=== PATIENT | female | born 1985 | race Caucasian/White ===

== ENCOUNTER 2016-12-24 12:20 | Emergency (ER) | payer OTHER ==
--- NOTE | 2016-12-24 13:00 | EDPHY ---
H & P Stated Complaint: swollen arm w/ PICC line. Active benadryl infusion. Time Seen by Provider: 12/24/16 12:59 HPI/ROS: CHIEF COMPLAINT: Right arm swelling HISTORY OF PRESENT ILLNESS: The patient presents to the ED for evaluation of right arm swelling. The patient developed symptoms over the past day. She reports swelling mild pain in her forearm. The patient currently has a PICC line for a continuous Benadryl infusion to treat a underlying mass cell disorder. The patient denies pleuritic chest pain. She denies significant dyspnea. The patient denies prior history of DVT. 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 The patient denies any additional acute complaints. REVIEW OF SYSTEMS: A comprehensive 10 point review of systems is otherwise negative aside from elements mentioned in the history of present illness. Source: Patient - Personal History LMP (Females 10-55): 15-21 Days Ago - Medical/Surgical History Other PMH: Mast cell activation syndrome, Manav Denlos syndrome - Social History Smoking Status: Never smoked - Physical Exam Exam: General Appearance: Alert, no distress Eyes: Pupils equal and round no pallor or injection ENT, Mouth: Mucous membranes moist Respiratory: There are no retractions, lungs are clear to auscultation Cardiovascular: Regular rate and rhythm Gastrointestinal: Abdomen is soft and nontender, no masses, bowel sounds normal Neurological: A&O, normal motor function, normal sensory exam, normal cranial nerves Skin: Warm and dry, no rashes Musculoskeletal: Neck is supple nontender Extremities: Right upper extremity does have asymmetric swelling with tenderness. 2+ radial and ulnar pulses noted. Constitutional: Initial Vital Signs Temperature (C) 36.4 C 12/24/16 12:38 Heart Rate 116 H 12/24/16 12:38 Respiratory Rate 18 12/24/16 12:38 Blood Pressure 108/76 12/24/16 12:38 O2 Sat (%) 96 12/24/16 12:38 O2 Delivery Mode Room Air Allergies/Adverse Reactions: "everything" Allergy (Uncoded 12/24/16 12:47) Home Medications: Medication Instructions Recorded Diphenhydramine 25 mg/50 ml-Ns 12/24/16 Famotidine 12/24/16 Rivaroxaban [Xarelto 15mg (*)] 15 mg PO BID #42 tab 12/24/16 Synthroid 12/24/16 Xanax 12/24/16 Medical Decision Making - Diagnostics Imaging Results: Imaging Impressions Extremity Venous Study 12/24/16 13:00 Impression: 1. Thrombus is seen associated with the PICC line from the entrance site into the right brachial vein that continues into the right axillary vein with partial thrombus in the right subclavian vein. Findings discussed with Benedicto Sahni at 14:42 hour, 12/24/2016. ED Course/Re-evaluation: The patient presents to the ED for evaluation of right upper extremity swelling and pain. The patient does have a PICC line in the extremity. Ultrasound does confirm the presence of a clot extending into the axillary vein. I paged the patient's primary provider at three p.m.. I spoke with the on-call physician for the patient's primary care provider at 4: 00 p.m.. The patient needs to continue to get her Benadryl infusion. Her PICC line is currently working. The patient will be discharged home with a prescription for Xarelto. The PICC line will be left in place. The patient will contact her regular physician tomorrow to schedule follow-up. The patient has no symptoms suggestive of a PE. She has been instructed to return to the ED should she develop significant dyspnea. The patient was given her 1st dose of Xarelto in the emergency department. She will be discharged home with a 21 day prescription. Transition to once daily Xarelto will be deferred to her regular primary care provider Differential Diagnosis: Differential diagnosis considered includes upper extremity DVT, pulmonary embolism, cellulitis, abscess Departure - Departure Disposition: Home, Routine, Self-Care Clinical Impression: Arm DVT (deep venous thromboembolism), acute Condition: Good Instructions: Deep Venous Thrombosis (ED) Additional Instructions: 1. Begin Xarelto as directed. You will be on this medication twice daily for the next 21 days and then begin a once daily medication. 2. Please contact Dr. Cannon tomorrow to schedule a follow-up visit. Prescriptions: Rivaroxaban [Xarelto 15mg (*)] 15 mg PO BID #42 tab
[2016-12-24] MEDS ORDERED: RIVAROXABAN 15 MG TAB PO ONE (16:06)
[2016-12-24 16:33] VITALS: RESP 16
[2016-12-24 16:34] VITALS: BP 110/77; PULSE 110; TEMP 98.4; O2SAT 97
== END 2016-12-24 16:34 | disposition home or self-care (01) ==
DX: I82.621 Acute embolism and thrombosis of deep veins of right upper extremity (principal); Z79.01 Long term (current) use of anticoagulants

== ENCOUNTER 2017-04-21 11:17 | Emergency (ER) | payer OTHER ==
--- NOTE | 2017-04-21 12:33 | EDPHY ---
H & P Stated Complaint: SOB for 2 days . c/o orthostatic VS .left sided CP . Gardner iv 3 months Time Seen by Provider: 04/21/17 11:58 HPI/ROS: CHIEF COMPLAINT: Clogged gardner catheter HISTORY OF PRESENT ILLNESS: Patient is a 31-year-old female with a history mast cell activation syndrome, Manav-Danlos syndrome who receives continuous IV Benadryl infusions. She has a hip man catheter for her infusions she also receives IV fluids daily through the 2nd port. Today it was found that her 2nd port is clogged. She takes Xarelto as well for history of DVT in her upper extremity secondary to PICC line. She denies chest pain or shortness of breath. No fevers. She was sent here by her doctor show field to have cath flow placed into her catheter. REVIEW OF SYSTEMS: Constitutional: denies: chills, fever, recent illness, recent injury EENTM: denies: blurred vision, double vision, nose congestion Respiratory: denies: cough, shortness of breath Cardiac: denies: chest pain, irregular heart rate, lightheadedness, palpitations Gastrointestinal/Abdominal: denies: abdominal pain, diarrhea, nausea, vomiting, blood streaked stools Genitourinary: denies: dysuria, frequency, hematuria, pain Musculoskeletal: denies: joint pain, muscle pain Skin: denies: lesions, rash, jaundice, bruising Neurological: denies: headache, numbness, paresthesia, tingling, dizziness, weakness Hematologic/Lymphatic: denies: blood clots, easy bleeding, easy bruising Immunologic/allergic: denies: HIV/AIDS, transplant EXAM: GENERAL: Thin, anxious HEAD: Atraumatic, normocephalic. EYES: Pupils equal round and reactive to light, extraocular movements intact, sclera anicteric, conjunctiva are normal. ENT: TMs normal, nares patent, oropharynx clear without exudates. Moist mucous membranes. NECK: Normal range of motion, supple without lymphadenopathy or JVD. LUNGS: Breath sounds clear to auscultation bilaterally and equal. No wheezes rales or rhonchi. HEART: Regular rate and rhythm without murmurs, rubs or gallops. ABDOMEN: Soft, nontender, normoactive bowel sounds. No guarding, no rebound. No masses appreciated. BACK: No CVA tenderness, no spinal tenderness, step-offs or deformities EXTREMITIES: Normal range of motion, no pitting or edema. No clubbing or cyanosis. NEUROLOGICAL: Cranial nerves II through XII grossly intact. Normal speech, normal gait. 5/5 strength, normal movement in all extremities, normal sensation PSYCH: Normal mood, normal affect. SKIN: Warm, dry, normal turgor, no visible rashes or lesions. Source: Patient Exam Limitations: No limitations - Personal History LMP (Females 10-55): Over 28 Days Ago Current Tetanus/Diphtheria Vaccine: Unsure Current Tetanus Diphtheria and Acellular Pertussis (TDAP): Unsure - Medical/Surgical History Hx Asthma: No Hx Chronic Respiratory Disease: No Hx Diabetes: No Hx Cardiac Disease: No Hx Renal Disease: No Hx Cirrhosis: No Hx Alcoholism: No Hx HIV/AIDS: No Hx Splenectomy or Spleen Trauma: No Other PMH: Mast cell activation syndrome, Manav Denlos syndrome, DVT - Family History Significant Family History: No pertinent family hx - Social History Smoking Status: Never smoked Alcohol Use: None Drug Use: None Constitutional: Initial Vital Signs Temperature (C) 36.6 C 04/21/17 11:20 Heart Rate 114 H 04/21/17 11:20 Respiratory Rate 22 H 04/21/17 11:20 Blood Pressure 102/61 04/21/17 11:20 O2 Sat (%) 97 04/21/17 11:20 O2 Delivery Mode Room Air Allergies/Adverse Reactions: "everything" Allergy (Uncoded 04/21/17 11:24) Home Medications: Medication Instructions Recorded Diphenhydramine 25 mg/50 ml-Ns 12/24/16 Famotidine 12/24/16 Rivaroxaban [Xarelto 15mg (*)] 15 mg PO BID #42 tab 12/24/16 Synthroid 12/24/16 Xanax 12/24/16 Medical Decision Making - Diagnostics Imaging: Discussed imaging studies w/ md urologist Radiologist ED Course/Re-evaluation: Patient has stable vital signs. She is saturating 100% on room air. She was slightly tachycardic at triage but in the room is not. We discussed the recommendations of her primary doctor. We plan to treat with cath flow but she is very anxious because she has had multiple allergic reactions to medications in the past. She initially was willing to proceed if we pretreated her with Solu-Medrol. This was approved by her doctor. We also discussed possibly pre treating her with Benadryl but she is very concerned that we give it slowly and not chilled. Eventually because both of her children and her were in the room with her she became anxious and stressed and decided that she does not want to do it today but do it as an outpatient. I feel that this is reasonable because she does still have 1 port of her catheter that works. The other 1 is only used for fluid boluses. We will contact Dr. Cannon. 1:10 p.m. I discussed the case with Dr. Cannon. She recommends ultrasound to evaluate for IJ or brachial clot because of the patient's pain in that region yesterday. Also to pre treat with Solu-Medrol and Benadryl as previously discussed and then give cath flow. She states that this could happen at home with her home health nurse on Sunday but then the patient would be without IV fluids for 2 days. I spoke with the patient and who are now agreeable with this plan. The Benadryl needs to be the KARY brand. 2:45 p.m. the patient's catheter is working again after cath flow. Ultrasound of her upper extremities bilaterally is negative including IJ. The patient has tolerated the procedure without any adverse reactions. I will discharge her at this time. Differential Diagnosis: Partial list of the Differential diagnosis considered include but were not limited to; catheter malfunction, clot, anxiety and although unlikely based on the history and physical exam, I also considered DVT, PE, infection. I discussed these differential diagnoses and the plan with the [patient] as well as the usual and expected course. The [patient understands] that the diagnosis is provisional and that in medicine we are not always correct and that further workup is often warranted. Usual and customary warnings were given. All of the [patient's] questions were answered. The [patient was] instructed to return to the emergency department should the symptoms at all worsen or return, otherwise to followup with the physician as we discussed. - Data Points Medications Given: Discontinued Medications Alteplase, Recombinant (Cathflo Activase) 2 mg IVP EDNOW ONE Stop: 04/21/17 13:14 Last Admin: 04/21/17 13:50 Dose: 2 mg Diphenhydramine HCl (Benadryl Injection) 50 mg IVP EDNOW ONE Stop: 04/21/17 13:14 Last Admin: 04/21/17 13:50 Dose: 50 mg Methylprednisolone Sodium Succinate (Solu-Medrol) 125 mg IVP EDNOW ONE Stop: 04/21/17 13:14 Last Admin: 04/21/17 13:50 Dose: 125 mg Departure - Departure Disposition: Home, Routine, Self-Care Clinical Impression: Malfunction of peripheral inserted central catheter Qualifiers: Encounter type: initial encounter Qualified Code(s): T82.598A - Other mechanical complication of other cardiac and vascular devices and implants, initial encounter Condition: Fair Instructions: Tunneled Central Lines in Adult (ED) Referrals: Vilma Cannon [Other] - As per Instructions
[2017-04-21] MEDS ORDERED: methylPREDNISolone SOD SUCC 125 MG/2 ML VIAL IVP ONE (13:13)
[2017-04-21] MEDS ORDERED: ALTEPLASE 2 MG VIAL IVP ONE (13:13)
[2017-04-21 14:33] VITALS: RESP 14
[2017-04-21 15:29] VITALS: BP 117/73; PULSE 98; O2SAT 100
[2017-04-21 15:40] VITALS: TEMP 97.7
== END 2017-04-21 15:39 | disposition home or self-care (01) ==
DX: T82.598A Other mechanical complication of other cardiac and vascular devices and implants, initial encounter (principal); Y82.8 Other medical devices associated with adverse incidents
CPT/HCPCS: 96374; J0171; J1200; J2930; J2997

== ENCOUNTER 2017-09-25 12:55 | Emergency (ER) | payer MEDICAID, OTHER ==
[2017-09-25] MEDS ORDERED: NS 1,600 ML IV ONE (13:45)
--- NOTE | 2017-09-25 13:50 | EDPHY ---
H & P Stated Complaint: fever - has mast disease Time Seen by Provider: 09/25/17 13:33 HPI/ROS: CHIEF COMPLAINT: Fever HISTORY OF PRESENT ILLNESS: Patient is a 31-year-old female who comes to the emergency department complaining of a fever in the setting of a PICC line. She has a PICC line for frequent infusions of fluids and Benadryl because of her mast cell activation syndrome. 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 Also Manav-Danlos and POTS. Her home health nurse today noticed that her temperature was 99 degrees. The patient and state that she typically runs low. She has some irritation around the PICC line but no infectious signs. Her states that she tends to pick at it in her sleep. He is her primary coding support specialist. Her states that he has taken her temperature about 10 times with a temporal thermometer and her temperature was between 102 and 104. He states that 20 min later it was 99 degrees here at triage. They are concerned about line infection. She does feel generally weak and states that she feels flushed. She states that her bead flipper left the practice but that her care has been handed over to Dr. Elio Hernandez at [facility] . The patient had her PICC line changed 2 weeks ago from the left side of her chest to the right side of her chest. No urinary symptoms. No vaginal bleeding. No GI symptoms. REVIEW OF SYSTEMS: Constitutional: See HPI EENTM: denies: blurred vision, double vision, nose congestion Respiratory: denies: cough, shortness of breath Cardiac: denies: chest pain, irregular heart rate, lightheadedness, palpitations Gastrointestinal/Abdominal: denies: abdominal pain, diarrhea, nausea, vomiting, blood streaked stools Genitourinary: denies: dysuria, frequency, hematuria, pain Musculoskeletal: denies: joint pain, muscle pain Skin: denies: lesions, rash, jaundice, bruising Neurological: denies: headache, numbness, paresthesia, tingling, dizziness, weakness Hematologic/Lymphatic: denies: blood clots, easy bleeding, easy bruising Immunologic/allergic: denies: HIV/AIDS, transplant EXAM: GENERAL: Alert, malnourished, talkative in no acute distress. HEAD: Atraumatic, normocephalic. EYES: Pupils equal round and reactive to light, extraocular movements intact, sclera anicteric, conjunctiva are normal. ENT: TMs normal, nares patent, oropharynx clear without exudates. Moist mucous membranes. NECK: Normal range of motion, supple without lymphadenopathy or JVD. LUNGS: Breath sounds clear to auscultation bilaterally and equal. No wheezes rales or rhonchi. HEART: Regular rate and rhythm without murmurs, rubs or gallops. ABDOMEN: Soft, nontender, normoactive bowel sounds. No guarding, no rebound. No masses appreciated. BACK: No CVA tenderness, no spinal tenderness, step-offs or deformities EXTREMITIES: Normal range of motion, no pitting or edema. No clubbing or cyanosis. NEUROLOGICAL: Cranial nerves II through XII grossly intact. Normal speech, normal gait. 5/5 strength, normal movement in all extremities, normal sensation PSYCH: Normal mood, normal affect. SKIN: Mild irritation that appears to be from the take it arm around the PICC insertion in her right chest but no sign of infection. No purulence or significant erythema. Source: Patient, Family, Old records Exam Limitations: No limitations - Personal History LMP (Females 10-55): 15-21 Days Ago Current Tetanus/Diphtheria Vaccine: No Current Tetanus Diphtheria and Acellular Pertussis (TDAP): No - Medical/Surgical History Hx Asthma: No Hx Chronic Respiratory Disease: No Hx Diabetes: No Hx Cardiac Disease: No Hx Renal Disease: No Hx Cirrhosis: No Hx Alcoholism: No Hx HIV/AIDS: No Hx Splenectomy or Spleen Trauma: No Other PMH: Mast cell activation syndrome, Manav Denlos syndrome, DVT - Social History Smoking Status: Never smoked Constitutional: Initial Vital Signs Temperature (C) 37.7 C 09/25/17 13:02 Heart Rate 85 09/25/17 13:02 Respiratory Rate 18 09/25/17 13:02 Blood Pressure 92/58 L 09/25/17 13:02 O2 Sat (%) 96 09/25/17 13:02 O2 Delivery Mode Room Air Allergies/Adverse Reactions: "everything" Allergy (Uncoded 04/21/17 11:24) Home Medications: Medication Instructions Recorded Diphenhydramine 25 mg/50 ml-Ns 12/24/16 Famotidine 12/24/16 Rivaroxaban [Xarelto 15mg (*)] 15 mg PO BID #42 tab 07/16/17 Synthroid 12/24/16 Xanax 12/24/16 Medical Decision Making ED Course/Re-evaluation: The patient's has brought IV fluids and IV Benadryl medications from home because she is allergic to additives of multiple medications. 3:20 p.m. the patient is feeling well and remains afebrile. Her lactate is negative. I do not think that she is septic. Her white count is slightly elevated. She has chronic inflammation. They think that this is her baseline. I will page her bead flipper to discuss. She also has anemia which they were unaware of but is not surprising considering her diet which is basically cashew milk. They have tried iron supplementations without success because of her allergies. She is working with her bead flipper about this as well. They are asking for a copy of the lab work. They are eager to go home and did not want to stay in the hospital for concern of infection risk. They also asked about something besides Tegaderm to cover of her PICC line. This is a problem because she itches at the take her down at night. We will discuss with nursing staff and Oncology nursing staff. Differential Diagnosis: Partial list of the Differential diagnosis considered include but were not limited to; fever, sepsis, upper respiratory tract infection, influenza and although unlikely based on the history and physical exam, I also considered meningitis, pneumonia, urinary tract infection. I discussed these differential diagnoses and the plan with the patient as well as the usual and expected course. The patient understands that the diagnosis is provisional and that in medicine we are not always correct and that further workup is often warranted. Usual and customary warnings were given. All of the patient's questions were answered. The patient was instructed to return to the emergency department should the symptoms at all worsen or return, otherwise to followup with the physician as we discussed. - Data Points Laboratory Results: Laboratory Results 09/25/17 14:00 09/25/17 14:00 09/25/17 09/25/17 09/25/17 14:00 14:00 14:00 WBC 13.27 10^3/uL H 10^3/uL (3.80-9.50) RBC 4.24 10^6/uL 10^6/uL (4.18-5.33) Hgb 9.9 g/dL L g/dL (12.6-16.3) Hct 31.4 % L % (38.0-47.0) MCV 74.1 fL L fL (81.5-99.8) MCH 23.3 pg L pg (27.9-34.1) MCHC 31.5 g/dL L g/dL (32.4-36.7) RDW 16.4 % H % (11.5-15.2) Plt Count 286 10^3/uL 10^3/uL (150-400) MPV 9.2 fL fL (8.7-11.7) Neut % (Auto) 92.0 % H % (39.3-74.2) Lymph % (Auto) 2.0 % L % (15.0-45.0) [place] % (Auto) 4.6 % % (4.5-13.0) Eos % (Auto) 0.3 % L % (0.6-7.6) Baso % (Auto) 0.5 % % (0.3-1.7) Nucleat RBC Rel Count 0.0 % % (0.0-0.2) Absolute Neuts (auto) 12.21 10^3/uL H 10^3/uL (1.70-6.50) Absolute Lymphs (auto) 0.27 10^3/uL L 10^3/uL (1.00-3.00) Absolute Monos (auto) 0.61 10^3/uL 10^3/uL (0.30-0.80) Absolute Eos (auto) 0.04 10^3/uL 10^3/uL (0.03-0.40) Absolute Basos (auto) 0.06 10^3/uL 10^3/uL (0.02-0.10) Absolute Nucleated RBC 0.00 10^3/uL 10^3/uL (0-0.01) Immature Gran % 0.6 % % (0.0-1.1) Immature Gran # 0.08 10^3/uL 10^3/uL (0.00-0.10) PT 16.3 SEC H SEC (12.0-15.0) INR 1.29 H (0.83-1.16) APTT 31.4 SEC SEC (23.0-38.0) VBG Lactic Acid Sodium 137 mEq/L mEq/L (135-145) Potassium 3.4 mEq/L L mEq/L (3.5-5.2) Chloride 103 mEq/L mEq/L (97-110) Carbon Dioxide 24 mEq/l mEq/l (22-31) Anion Gap 10 mEq/L mEq/L (8-16) BUN 6 mg/dL L mg/dL (7-23) Creatinine 0.5 mg/dL L mg/dL (0.6-1.0) Estimated GFR > 60 Glucose 89 mg/dL mg/dL (70-100) Calcium 8.9 mg/dL mg/dL (8.5-10.4) Total Bilirubin 0.5 mg/dL mg/dL (0.1-1.4) 09/25/17 14:00 WBC RBC Hgb Hct MCV MCH MCHC RDW Plt Count MPV Neut % (Auto) Lymph % (Auto) [place] % (Auto) Eos % (Auto) Baso % (Auto) Nucleat RBC Rel Count Absolute Neuts (auto) Absolute Lymphs (auto) Absolute Monos (auto) Absolute Eos (auto) Absolute Basos (auto) Absolute Nucleated RBC Immature Gran % Immature Gran # PT INR APTT VBG Lactic Acid 0.7 mmol/L mmol/L (0.7-2.1) Sodium Potassium Chloride Carbon Dioxide Anion Gap BUN Creatinine Estimated GFR Glucose Calcium Total Bilirubin Medications Given: Discontinued Medications Sodium Chloride (Ns) 1,600 mls @ 3,200 mls/hr 30 ml/kg infuse over 30 min ( 1600 ml) IV EDNOW ONE PRN Reason: Protocol Stop: 09/25/17 14:14 Last Admin: 09/25/17 14:18 Dose: 1,600 mls Departure - Departure Disposition: Home, Routine, Self-Care Clinical Impression: Fever Qualifiers: Fever type: unspecified Qualified Code(s): R50.9 - Fever, unspecified Condition: Fair Instructions: Fever in Adults (ED) Referrals: Neida Leong MD [Primary Care Provider] - As per Instructions
[2017-09-25 14:21] LABS: PLATELET COUNT 286 10^3/uL (150-400)
[2017-09-25 14:26] LABS: INR 1.29 (0.83-1.16); PROTIME(PATIENT) 16.3 SEC (12.0-15.0)
[2017-09-25 16:33] VITALS: BP 119/79
== END 2017-09-25 16:34 | disposition home or self-care (01) ==
DX: R50.9 Fever, unspecified (principal); E86.9 Volume depletion, unspecified

== ENCOUNTER 2017-09-26 18:59 | Inpatient (IN) | payer MEDICAID ==
--- NOTE | 2017-09-26 19:23 | EDPHY ---
H & P Stated Complaint: Continued fevers, positive blood cultures. Time Seen by Provider: 09/26/17 19:16 HPI/ROS: CHIEF COMPLAINT: Bacteremia HISTORY OF PRESENT ILLNESS: The patient presents to the ED after she was noted to have positive blood cultures. The patient did have a new Galan catheter placed several weeks ago. She does have a history of an upper extremity DVT from prior PICC line which she is currently on anticoagulants for. The patient is concerned about the possibility of antibiotics activating her mast cell disorder. She is unaware of specific antibiotics which have caused anaphylaxis in the past. She has this for chronic underlying mast cell disorder. The patient's blood cultures have preliminarily identified MSSA. The patient does report symptoms of an ongoing fever today. REVIEW OF SYSTEMS: A comprehensive 10 point review of systems is otherwise negative aside from elements mentioned in the history of present illness. Source: Patient Exam Limitations: No limitations - Medical/Surgical History Hx Asthma: No Hx Chronic Respiratory Disease: No Hx Diabetes: No Hx Cardiac Disease: No Hx Renal Disease: No Hx Cirrhosis: No Hx Alcoholism: No Hx HIV/AIDS: No Hx Splenectomy or Spleen Trauma: No Other PMH: Mast cell activation syndrome, Manav Danlos syndrome, DVT - Family History Significant Family History: No pertinent family hx - Social History Smoking Status: Never smoked - Physical Exam Exam: General Appearance: Alert, no distress Eyes: Pupils equal and round no pallor or injection ENT, Mouth: Mucous membranes moist Thorax: Galan catheter noted to the right anterior chest wall. Minimal surrounding erythema. Respiratory: There are no retractions, lungs are clear to auscultation Cardiovascular: Tachycardic Gastrointestinal: Abdomen is soft and nontender, no masses, bowel sounds normal Neurological: A&O, normal motor function, normal sensory exam, normal cranial nerves Skin: Warm and dry, no rashes Musculoskeletal: Neck is supple nontender Extremities: symmetrical, full range of motion Psychiatric: Patient is oriented X 3, there is no agitation Constitutional: Initial Vital Signs Temperature (C) 36.6 C 09/26/17 19:01 Heart Rate 117 H 09/26/17 19:01 Respiratory Rate 16 09/26/17 19:01 Blood Pressure 135/97 H 09/26/17 19:01 O2 Sat (%) 93 09/26/17 19:01 O2 Delivery Mode Room Air Allergies/Adverse Reactions: "everything" Allergy (Uncoded 11/11/17 11:24) Home Medications: Medication Instructions Recorded Diphenhydramine 25 mg/50 ml-Ns 12/24/16 Famotidine 12/24/16 Rivaroxaban [Xarelto 15mg (*)] 15 mg PO BID #42 tab 12/24/16 Synthroid 12/24/16 Xanax 12/24/16 Medical Decision Making ED Course/Re-evaluation: I reviewed the patient's workup from last night and her blood culture results. The patient is noted to have MSSA bacteremia. I spoke with the covering physician surgeon assistant for the patient's immunology Clinic in [place]. They report they have no documented allergies to antibiotics only Pradaxa, tramadol, Vicodin and Xarelto. They do recommend pre treating with Solu-Medrol. The patient will be given [address]f IV[address]. Kelly at the [facility] would like to avoid pulling the PICC line if possible. He is available in the [facility] tomorrow at . Consultation is made with Dr. Gilbert camargo from the hospitalist service. The patient does not have an elevated lactic acid. She does not have septic physiology. Differential Diagnosis: Differential diagnosis considered includes bacteremia, cellulitis, sepsis - Data Points Laboratory Results: Laboratory Results 09/26/17 20:17 09/26/17 20:17 09/26/17 09/26/17 09/26/17 20:17 20:17 20:17 WBC 7.70 10^3/uL 10^3/uL (3.80-9.50) RBC 4.16 10^6/uL L 10^6/uL (4.18-5.33) Hgb 9.6 g/dL L g/dL (12.6-16.3) Hct 31.5 % L % (38.0-47.0) MCV 75.7 fL L fL (81.5-99.8) MCH 23.1 pg L pg (27.9-34.1) MCHC 30.5 g/dL L g/dL (32.4-36.7) RDW 16.5 % H % (11.5-15.2) Plt Count 212 10^3/uL D 10^3/uL (150-400) MPV 9.2 fL fL (8.7-11.7) Neut % (Auto) 90.7 % H % (39.3-74.2) Lymph % (Auto) 6.1 % L % (15.0-45.0) [place] % (Auto) 2.2 % L % (4.5-13.0) Eos % (Auto) 0.0 % L % (0.6-7.6) Baso % (Auto) 0.6 % % (0.3-1.7) Nucleat RBC Rel Count 0.0 % % (0.0-0.2) Absolute Neuts (auto) 6.98 10^3/uL H 10^3/uL (1.70-6.50) Absolute Lymphs (auto) 0.47 10^3/uL L 10^3/uL (1.00-3.00) Absolute Monos (auto) 0.17 10^3/uL L 10^3/uL (0.30-0.80) Absolute Eos (auto) 0.00 10^3/uL L 10^3/uL (0.03-0.40) Absolute Basos (auto) 0.05 10^3/uL 10^3/uL (0.02-0.10) Absolute Nucleated RBC 0.00 10^3/uL 10^3/uL (0-0.01) Immature Gran % 0.4 % % (0.0-1.1) Immature Gran # 0.03 10^3/uL 10^3/uL (0.00-0.10) VBG Lactic Acid 0.8 mmol/L mmol/L (0.7-2.1) Sodium 135 mEq/L mEq/L (135-145) Potassium 3.5 mEq/L mEq/L (3.5-5.2) Chloride 103 mEq/L mEq/L (97-110) Carbon Dioxide 23 mEq/l mEq/l (22-31) Anion Gap 9 mEq/L mEq/L (8-16) BUN 4 mg/dL L mg/dL (7-23) Creatinine 0.6 mg/dL mg/dL (0.6-1.0) Estimated GFR > 60 Glucose 75 mg/dL mg/dL (70-100) Calcium 8.4 mg/dL L mg/dL (8.5-10.4) Medications Given: Discontinued Medications Cefazolin Sodium/Dextrose (Ancef 1 Gm (Premix)) 50 mls @ 200 mls/hr IV EDNOW ONE PRN Reason: Protocol Stop: 09/26/17 20:28 Last Admin: 09/26/17 20:19 Dose: 50 mls Departure - Departure Disposition: [facility] Inpatient Acute Clinical Impression: Bacteremia, Mast cell disease Condition: Fair Referrals: Neida Leong MD [Primary Care Provider] - As per Instructions
[2017-09-26] MEDS ORDERED: CEFAZOLIN 1 GM/DEXTROSE/50 ML BAG IV ONE (20:16)
[2017-09-26] MEDS ORDERED: methylPREDNISolone SOD SUCC 125 MG/2 ML VIAL ONE (20:16)
[2017-09-26 20:37] LABS: PLATELET COUNT 212 10^3/uL (150-400)
[2017-09-26] MEDS ORDERED: methylPREDNISolone SOD SUCC 125 MG/2 ML VIAL IVP ONE (20:52)
[2017-09-27] MEDS ORDERED: ALPRAZOLAM PO PRN (00:34)
--- NOTE | 2017-09-27 01:08 | GHP ---
[f rep st] HISTORY AND PHYSICAL DATE OF ADMISSION: 09/26/2017 SOURCE: Patient is only able or willing to give a few one-word answers at this time. She does roll over and away from examiner during exam, despite giving verbal consent to complete a physical. Her has gone home to retrieve patient's home medications. Case discussed with accepting hospitalist and EMR was reviewed. CHIEF COMPLAINT: Bacteremia. 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 The patient had presented with her yesterday to the emergency department with concerns for elevated temperature of 99, as patient typically runs a little low. Blood cultures were obtained. The patient did have a little bit of leukocytosis. The patient did not want to be admitted for observation. She did receive a normal saline bolus before she was discharged back home. Blood cultures were positive today for MSSA and patient returned today for appropriate treatment. The patient with multiple medication and additive allergies related to her MCAS. At this time, patient is denying any fevers. She denies any acute pain. Per a review of EMR, patient did appear to be scratching at her CVC site right Galan catheter recently placed, and there may have been some surrounding erythema. No noted overt cellulitis. REVIEW OF SYSTEMS: Unable to obtain at this time secondary to patient cooperation. ALLERGIES: "Everything." HOME MEDICATIONS: As per EMR, levothyroxine 50 mcg p.o. Sunday, Sunday, Sunday, , Sunday, and then 100 mcg on Sunday, Sunday; Eliquis 5 mg p.o. b.i.d., Xanax 1-2 mg p.o. q.2 hours p.r.n., Benadryl 25-50 mg p.o. q.1-2 hours p.r.n. PAST MEDICAL HISTORY: Significant for mast cell activation syndrome, Manav- Danlos, DVT on anticoagulation, POsitional tachycardia syndrome. PAST SURGICAL HISTORY: PICC line, multiple CVC lines. FAMILY HISTORY: Unable to obtain secondary to patient cooperation. SOCIAL HISTORY: Patient is , lives with her and children. No listed tobacco, drug, or alcohol use. CODE STATUS: The patient is not interactive enough to further discuss, but will plan to leave her as a full code at this time and clarify in the morning. PHYSICAL EXAMINATION: VITAL SIGNS: Upon arrival to the emergency department today, blood pressure 135/95, heart rate 117, O2 saturation 93% on room air with a respiratory rate 16, temperature 36.6. Current vitals: Blood pressure 126/77, heart rate is 92, respiratory rate 16, O2 saturation 95% on room air with temperature 37.4. The patient did have a fever of 38.7. GENERAL: No acute distress. Patient is thin, frail, chronically ill-appearing female, who is resting quietly, asleep in the bed. HEAD: Normocephalic, atraumatic. EYES : Limited exam secondary to patient's going back to sleep during interview. No scleral icterus appreciated or conjunctival injection. SKIN: Pallor. Patient PICC line with old dressing in place. Limited exam secondary to patient rolling over to sleep. CV: Regular rate and rhythm. No murmurs, rubs , or gallops appreciated. RESPIRATORY: Unlabored breathing. LUNGS: Clear to auscultation bilaterally. No wheezes, rales, or rhonchi. ABDOMEN: Soft. Unable to auscultate secondary to patient rolling over, away from examiner. EXTREMITIES: Patient with 1+ pedal pulses. No lower extremity edema. MUSCULOSKELETAL: Patient with generalized weakness, but she is able to move all her extremities while lying in bed. NEURO: Limited exam secondary to patient's cooperation. PSYCH: Affect is quite flat. LABORATORY STUDIES: WBC on 09/22/2017, 13.27, H and H was 9.9 and 31.4, MCV was 94.1, platelet count was 286. No bands today. CBC is 7.70, H and H is 9.6 and 31.5, MCV 75.7, platelet count is 212, neutrophil percent 90.7, no bands. Lactic acid is negative today and yesterday. BMP reviewed. Sodium 135, potassium 3.5, chloride is 103, CO2 is 23, anion gap 9, BUN is 4, creatinine 0.6 GFR greater than 60, glucose 75, calcium is 8.4. Blood cultures from 09/22/2017, all positive MSSA and gram-positive cocci in clusters. ASSESSMENT AND PLAN: A 31-year-old female with history of chronic central access and mast cell activation syndrome, deep venous thrombosis on anticoagulation, who presents with a history of fever, and now with positive blood cultures. 1. Bacteremia with methicillin-sensitive staphylococcus aureus. The patient received Ancef in the emergency department. We will plan to continue this and use a pre dose of IV Solu-Medrol before administration of each dose. We will also have Infectious Disease consultation in the morning to assist. Concern is that patient's line is infected. However, given her history of very difficult access and history of recently changed PICC line for DVT and now with right Galan catheter in place. we will need to coordinate for an appropriate plan but likely will need removal. ID consulted as above. The patient also is currently on anticoagulation. 2. Anemia, appears to be acute per review of yesterday's ED visit. Patient's portainer operator was not aware. The patient has had poor oral intake and a very limited diet due to her reactions. Dietary consultation has been ordered. No evidence of active bleeding. Will continue to monitor H and H. 3. History of DVT on Eliquis. We will plan to continue. 4. Chronic indwelling line, as noted above. 5. Mast cell activation syndrome. Continue with patient's home Benadryl, epinephrine available p.r.n. We will hold off on any IV fluids at this time, as patient has noted allergy previously did require use of her own fluids, and will further try to discuss with when he returns, as patient currently not able or willing to cooperate during interview today. 6. Manav-Danlos. 7. Pott's disease. 8. Fluid, electrolyte, nutrition: The patient does appear to be slightly dry in her mucous membranes, but again, we will hold off and wait for to return with home medications to further discuss IV fluids. Will avoid dextrose in setting of her MCAS. Electrolytes will be monitored and replaced if needed. Advance diet as tolerated with dietary consultation. 9. Prophylaxis on Eliquis, SCDs if tolerated. 10. Code status: At this time will be full. Will need to have further discussion with as per day team. 11. Disposition: Patient has been admitted to inpatient status given her positive blood cultures. Anticipate greater than 2 midnight stay and requirement for IV antibiotics. /[id number]/MODL MTDD
[2017-09-27] MEDS ORDERED: LORazepam 2 MG/ML INJ IV PRN (02:00)
[2017-09-27] MEDS ORDERED: methylPREDNISolone SOD SUCC 125 MG/2 ML VIAL IVP SCH (04:00)
[2017-09-27 04:44] LABS: PLATELET COUNT 241 10^3/uL (150-400)
[2017-09-27] MEDS: LEVOTHYROXINE 50 MCG PO SCH (05:06)
--- NOTE | 2017-09-27 05:41 | PDMN ---
Medical Necessity Medical necessity: Pt meets IP criteria per MD; est los >2 mn for eval/tx of bacteremia w/MRSA; admit for further monitoring, IV abx & ID consult; hx mast cell activation syndrome w/chronic indwelling PICC, Manav-Danios syndrome, DVTs on AC & positional tachycardia syndrome; per H&P & order 09/26/17
[2017-09-27] MEDS: methylPREDNISolone SOD SUCC 125 MG/2 ML VIAL IVP SCH ×3 (06:22→21:48)
[2017-09-27] MEDS: APIXABAN 5 MG PO SCH ×2 (11:02→23:39)
--- NOTE | 2017-09-27 11:07 | ASMTCMCOM ---
CM Note CM Note Notes: Pt with hx of mast cell activation admitted with bacteremia. Met with pt who states she is current with [facility] for IV benadryl, saline and attivan and [facility] for RN. Faxed them initial clinicals. CM to follow. Date Signed: 09/27/2017 11:06 AM Electronically Signed By:Cristina Sheets LCSW
[2017-09-27] MEDS: LORazepam 2 MG/ML INJ IV PRN ×5 (13:03→23:23)
--- NOTE | 2017-09-27 15:47 | GCON ---
[f rep st] CONSULTATION INPATIENT INFECTIOUS DISEASE CONSULTATION REFERRING PHYSICIAN: Phoebe Gutierrez MD. REASON FOR REFERRAL: Staph aureus bacteremia. Probable catheter infection. HISTORY OF PRESENT ILLNESS: Patient is a 31-year-old female with an underlying past medical history of mast cell degranulation disorder and Pott's disease, who also has a diagnosis of Manav-Danlos syn drome, who has had a catheter in her right chest for the last 3 weeks. This was placed secondary to the patient's reported need for IV antihistamines and benzodiazepines. The patient had presented to the emergency room on 09/16/2017, with a multiple-day history of high fevers. The patient was also q uite fatigued and behaving differently, according to her . The patient had blood cultures obt ained. Her blood cultures became positive for methicillin sensitive Staphylococcus aureus and the pa missy returned to the hospital and was admitted. She was started on IV cefazolin. Currently, she is resting in her hospital bed. She is alternately elevated and of normal behavior during my interview . She is quite upset with the situation. She is very fixated on her need for IV Benadryl and benzod iazepine as well as certain specific narcotic pain relievers. She does not admit to many symptoms in regard to her right-sided catheter. She does note that starting a few days ago, she became very fat igued and had decreased appetite and decreased energy. PAST MEDICAL HISTORY: 1. Mast cell activation syndrome. 2. Manav-Danlos syndrome. 3. Pott's disease. 4. History of deep venous thrombosis. PAST SURGICAL HISTORY: Multiple catheter placements. ANTIBIOTICS: Cefazolin. ALLERGIES: Patient states she is allergic to everything. SOCIAL HISTORY: Patient is . She has 2 children. No significant tobacco, alcohol or drug us e noted. FAMILY HISTORY: Reviewed but noncontributory. REVIEW OF SYSTEMS: Other than that detailed above in history of present illness, a comprehensive 10- system review is negative. PHYSICAL EXAMINATION: VITAL SIGNS: Temperature maximum is 38.7, temperature current is 36.4, heart rate is 77, respiratory rate is 18, blood pressure is 122/80. GENERAL: The patient is a well-formed , well-nourished young female, in no acute distress. She is not toxic in appearance. She is alert a nd oriented x3. She is labile in her disposition. HEENT: Normocephalic for age. Atraumatic. No s cleral icterus. No oral lesion. No drainage from the nares. Eyes: Lids and conjunctivae within no rmal limits. Pupils are equal and round bilaterally. NECK: Supple. No meningismus. LUNGS: Clear to auscultation bilaterally with good effort. HEART: Regular rate and rhythm. No murmur, rub, or gallop noted. The patient does have a Galan catheter in the right chest. No erythema surrounding this catheter. No tenderness around the site. ABDOMEN: Soft, nontender. No masses. SKIN: Warm a nd dry to the touch. No rashes or lesion seen. MUSCULOSKELETAL: No muscle belly tenderness is note d. No joint line effusion or arthritis is seen. NEURO: Cranial nerves 2-12 seem to be intact. Per ipheral sensation seems intact in extremities. LABORATORY DATA: The patient has a CBC dated 09/27/2017, shows a white blood cell count 7.4, hemoglo bin of 10.5, hematocrit of 34.7, platelet count 241; differential is left shifted with 95% segmented neutrophils. Serum chemistries on 09/27/2017, show sodium 139, potassium 4.3, chloride 104, bicarbon ate 24, BUN of 8, creatinine 0.5. MICROBIOLOGIC DATA: The patient has blood cultures dated 09/25/2017, which are growing methicillin s ensitive Staph aureus in 2/2 sets. ASSESSMENT: Methicillin sensitive Staphylococcus aureus bacteremia secondary to catheter infection. The patient will need to continue on intravenous cefazolin. She will also need to have the Galan catheter removed. Discussion with Dr. Jose Tabares about these circumstances. The patient has a d ifficult to delineate underlying medical history. This will be complicating for managing antibiotic needs. PLAN: 1. Continue IV cefazolin 2 g q.8 hours. 2. Repeat blood cultures in 1 more day. 3. Follow clinical course. /[id number]/MODL
--- NOTE | 2017-09-27 16:19 | HOSPPROG ---
Hospitalist Progress Note Assessment/Plan: 31 year old female w masct cell activation syndrome here w MSSA bacteremia MSSA bacteremia: cefazolin started source is likely line needs line removed, termite treater helper abx line infection: line out today given unusual location, will check cxr first d/w dr vasquez mast cell activation syndrome: continue beadryl and solumedrol will decrease solumedrol proph: anticoagulated Subjective: case d/w dr moore. very anxious Objective: Vital Signs Temp Pulse Resp BP Pulse Ox 36.4 C 77 18 122/80 H 97 09/27/17 08:35 09/27/17 08:35 09/27/17 08:35 09/27/17 08:35 09/27/17 08:35 Laboratory Results 09/27/17 04:30 09/27/17 04:30 09/26/17 09/27/17 09/28/17 05:59 05:59 05:59 Intake Total 450 Balance 450 - Physical Exam Constitutional: no apparent distress, appears nourished Eyes: PERRL, anicteric sclera Ears, Nose, Mouth, Throat: moist mucous membranes, hearing normal Cardiovascular: regular rate and rhythym, no murmur, rub, or gallop, other ( central line in R chest w no erythema or purulence) Respiratory: no respiratory distress, no rales or rhonchi Gastrointestinal: normoactive bowel sounds, soft, non-tender abdomen Genitourinary: no bladder fullness, No martinez in urethra Skin: warm, normal color ICD10 Worksheet Patient Problems: Problems Problem Status Onset Bacteremia Acute Mast cell disease Acute Malfunction of peripheral inserted central catheter Acute
[2017-09-27] MEDS: ceFAZolin 2 GM/SWFI 2 GM/20 ML SYR IVP SCH (21:49)
[2017-09-27] MEDS ORDERED: ceFAZolin 2 GM/DEXTROSE 100 ML IV SCH (22:00)
[2017-09-27] MEDS: APIXABAN 5 MG TAB PO SCH (23:25)
[2017-09-28] MEDS: LORazepam 2 MG/ML INJ IV PRN ×7 (02:01→21:44)
[2017-09-28] MEDS: ceFAZolin 2 GM/SWFI 2 GM/20 ML SYR IVP SCH ×3 (06:16→21:18)
[2017-09-28] MEDS: methylPREDNISolone SOD SUCC 125 MG/2 ML VIAL IVP SCH ×3 (06:16→21:44)
--- NOTE | 2017-09-28 11:38 | HOSPPROG ---
Hospitalist Progress Note Assessment/Plan: 31 year old female w masct cell activation syndrome here w MSSA bacteremia MSSA bacteremia: cefazolin started repeat cultures drawn today source is likely line needs line removed, fci abx line infection: line out today w IR. delay related to understanding what kind of line it is to ensure safe removal procedural sedation: wishes for conscious sedation, post removal pain meds seems excessive for line removal bnut will provide given importance of getting this line out mast cell activation syndrome: continue benadryl and solumedrol will decrease solumedrol to 40 q 6 proph: anticoagulated Subjective: behavioral issues w nursing staff. case d/w casey mario and bakari. afebrile. not tachycardic Objective: Vital Signs Temp Pulse Resp BP Pulse Ox 36.9 C 91 18 151/117 H 94 09/28/17 09:08 09/28/17 09:08 09/28/17 09:08 09/28/17 09:08 09/28/17 09:08 Laboratory Results 09/27/17 04:30 09/27/17 04:30 09/27/17 09/28/17 09/29/17 05:59 05:59 05:59 Intake Total 450 750 Balance 450 750 - Physical Exam Constitutional: no apparent distress, appears nourished Eyes: PERRL, anicteric sclera Ears, Nose, Mouth, Throat: moist mucous membranes, hearing normal Cardiovascular: regular rate and rhythym, no murmur, rub, or gallop, other ( line w no eythema, fluctuance or purulence), No systolic murmur Respiratory: no respiratory distress, no rales or rhonchi Gastrointestinal: normoactive bowel sounds, soft, non-tender abdomen Genitourinary: no bladder fullness, No martinez in urethra Skin: warm, normal color, No erythema Musculoskeletal: full muscle strength ICD10 Worksheet Patient Problems: Problems Problem Status Onset Bacteremia Acute Mast cell disease Acute Malfunction of peripheral inserted central catheter Acute
[2017-09-28] MEDS: APIXABAN 5 MG TAB PO SCH ×2 (12:05→21:18)
[2017-09-28] MEDS: LEVOTHYROXINE 50 MCG PO SCH (12:06)
[2017-09-28] MEDS ORDERED: ALPRAZolam 0.5 MG TAB PO PRN (12:30)
[2017-09-28] MEDS: oxyCODONE IR 5 MG TAB PO PRN ×3 (12:53→21:43)
[2017-09-28] MEDS: ALPRAZolam 0.5 MG TAB PO PRN ×3 (13:07→20:20)
--- NOTE | 2017-09-28 13:31 | PCMIDPN ---
Assessment/Plan: Assessment/Plan: * MSSA bacteremia likely associated with Galan catheter infection: Blood cultures repeated today to assess for clearing of bacteremia. Plans for Galan catheter removal in interventional Radiology later this afternoon. Ideally would use peripheral IV for antibiotic therapy until confirmed repeat blood cultures are negative. Patient however is supposed to use of peripheral IV. If no other alternatives, likely will need PICC line placed with continued followup of pending blood cultures. Plan 2 weeks of cefazolin if repeat blood cultures are negative. 09/28/17 13:27 Subjective: Patient complains of having IV infiltration with IV infusion. Plans for Galan removal later today. Objective: Vital Signs Temp Pulse Resp BP Pulse Ox 36.9 C 91 18 151/117 H 94 09/28/17 09:08 09/28/17 09:08 09/28/17 09:08 09/28/17 09:08 09/28/17 09:08 Laboratory Results 09/27/17 04:30 09/27/17 04:30 09/27/17 09/28/17 09/29/17 05:59 05:59 05:59 Intake Total 450 750 Balance 450 750 Cefazolin # 2 Blood cultures 09/26/2017 2 MSSA Blood cultures 09/28/2017 pending - Physical Exam General Appearance: alert, no apparent distress EENT: No scleral icterus Cardiac/Chest: regular rate, rhythm, other (Galan catheter nontender), No systolic murmur ICD10 Worksheet Patient Problems: Problems Problem Status Onset Bacteremia Acute Mast cell disease Acute Malfunction of peripheral inserted central catheter Acute
[2017-09-28] MEDS ORDERED: LIDO/EPI 1% **Not for Epidural 20 ML MDV ONE (14:59)
--- NOTE | 2017-09-28 17:07 | PDIAF ---
- Diagnosis Diagnosis: Ancef 2 g IV q.8 hours Code Status: Full Code - Medication Management Discharge Medications: Medications to Continue on Transfer ALPRAZolam [Xanax 0.5 MG (*)] 1 - 2 mg PO Q2H PRN 12/24/16 [Last Taken 09/26/17 16:00] Diphenhydramine 25 mg/50 ml-Ns 0 mg IV PRN PRN 12/24/16 [Last Taken 09/26/17] Levothyroxine [Synthroid 50 mcg (*)] 50 mcg PO MOTUWETHFR@12/24/16 [Last Taken 09/26/17] Apixaban [Eliquis] 5 mg PO BID 09/26/17 [Last Taken 09/26/17 12:00] Levothyroxine [Synthroid 100 mcg (*)] 100 mcg PO SUSA@09/26/17 [Last Taken ] Wrapping Machine Operator Antibiotic Stop Date: 10/12/17 Discharge Medications: Refer to the Discharge Home Medication list for PRN reason. - Labs/Radiology CBC w/diff Date: 10/01/17 CMP Date: 10/01/17 Call or Fax Lab and Imaging Results to: Dr. Mendoza, - Follow Up Care Current Providers and Referrals: Neida Leong MD [Primary Care Provider] - As per Instructions
--- NOTE | 2017-09-28 17:30 | ASMTCMCOM ---
CM Note CM Note Notes: P to get infected gardner catheter removed today. Pt will need IV cefazolin for at least two weeks until bacteremia clears. Pt could also get her other IV medications for her mast Cell activiation. Optimal plan would be for pt to remain inpt until bacteremia clears, however pt has been threatening to leave all day. If pt does leave, it is unclear what her options will be. utility worker forge Ian and IRMA Guillen expressed concern that pt is her 5 y/o dtr while taking IV attivan and benadryl. He will address with pt and if pt remains through the weekend, CPS may need to called if weekend staff feels it is warranted for behaviors and continued . Date Signed: 09/28/2017 05:29 PM Electronically Signed By:Cristina Sheets LCSW
[2017-09-28 19:32] VITALS: BP 115/89
--- NOTE | 2017-09-29 08:45 | HOSPPROG ---
Hospitalist Progress Note Assessment/Plan: 31 year old female w masct cell activation syndrome here w MSSA bacteremia patient left AMA evening 09/28 blood cx remain positive I left patient a voice mail regarding the risks of not treating this i urged her to seek care Objective: Vital Signs Temp Pulse Resp BP Pulse Ox 36.1 C 115 H 18 115/89 H 97 09/28/17 19:29 09/28/17 19:29 09/28/17 19:29 09/28/17 19:29 09/28/17 19:29 Laboratory Results 09/27/17 04:30 09/27/17 04:30 09/28/17 09/29/17 09/30/17 05:59 05:59 05:59 Intake Total 1625 Balance 1625 ICD10 Worksheet Patient Problems: Problems Problem Status Onset Malfunction of peripheral inserted central catheter Acute Bacteremia Acute Mast cell disease Acute
--- NOTE | 2017-09-29 08:59 | GDS ---
[f rep st] DISCHARGE SUMMARY Please note, the patient left against medical advice. DISCHARGE DIAGNOSES: 1. Staphylococcus aureus bacteremia attributable to indwelling catheter. 2. Borderline personality disorder. 3. 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 6. 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 Please see admission history and physical by Dr. Phoebe Gutierrez. The patient was called back to the emergency department for positive blood cultures that were drawn there 09/25 after she presented with a fever. She declined admission at that time. Repeat blood cultures were drawn and remained positive as of this morning. The patient was exceedingly challenging to manage. She has claimed multiple drug allergies and refused multiple things. Ultimately, her tunneled line was removed by IR without complications. The patient essentially refused to stay, wishing to complete her care as an outpatient. This is of course not appropriate for a patient with ongoing Staph aureus bacteremia. She left against medical advice on the evening of the . Prescriptions were not provided. I spoke with her outpatient web editor, who confirms presence of mast cell activation syndrome and the use of Xanax as a "mast cell stabilizer." I did some research on this, including speaking with national expert allergists who confirm that benzodiazepines actually worsen mast cell degranulation. I left her voice mail today letting her know of ongoing positive blood cultures and urged her to seek care. /[id number]/MODL MTDD
== END 2017-09-28 22:45 | disposition left against medical advice (07) | DRG 466 ==
LOC: OBSVTOIN 20:51 → F1N 22:00
PROVIDERS: ADMIT Family Medicine; ATTEND Internal Medicine
DX: T83.511A Infection and inflammatory reaction due to indwelling urethral catheter, initial encounter (principal); R78.81 Bacteremia; B95.61 Methicillin susceptible Staphylococcus aureus infection as the cause of diseases classified elsewhere; D89.40 Mast cell activation, unspecified; Q79.6 Ehlers-Danlos syndromes; D64.9 Anemia, unspecified; F60.3 Borderline personality disorder; R00.0 Tachycardia, unspecified; Z86.718 Personal history of other venous thrombosis and embolism; Z79.01 Long term (current) use of anticoagulants
CPT/HCPCS: 96365; J0690; J1200; J2060; J2930

== ENCOUNTER 2017-10-01 14:28 | Emergency (ER) | payer MEDICAID ==
--- NOTE | 2017-10-01 15:48 | EDPHY ---
H & P Time Seen by Provider: 10/01/17 15:25 HPI/ROS: Chief complaint. Positive blood culture HPI. 31-year-old female who was seen in our emergency department on September 25 and blood cultures were obtained. They were positive for Staph aureus. She was admitted the next day after being contacted and was admitted on the . Patient received Solu-Medrol and IV Ancef. She then signed out AMA on September 28. Patient saw her healthcare provider earlier today who recommended the patient return because of the positive blood cultures. She refuses to be admitted but would like to have Q 8 hr Ancef infusion set up. Since her AMA discharge on 09/28 she has had vomiting but denies fever. No chest discomfort or cough or shortness of breath. No abdominal pain. ROS Constitutional. no fever/chills, no weakness Eyes. no problems with vision ENT. no sore throat, no nasal drainage Cardiovascular. no chest pain Respiratory. no shortness of breath, no cough Abdominal. Vomiting . no problems urinating MS. no calf pain/swelling, no neck/back pain, no joint pain Skin. no rash Lymph. no swollen glands Neuro. no headache, no dizziness, no difficulty walking or with speech Past Medical/Surgical History: Past medical history significant for recently staph bacteremia that has been found to be EMS as a. Personality disorder. Benzodiazepine misuse. Mast cell activation syndrome, Ehler Danlos syndrome, DVT Social History: , nonsmoker, no alcohol Smoking Status: Never smoked Physical Exam: General Appearance: Alert well-developed female mild distress vital signs significant for heart rate 104. Afebrile Eyes: Pupils equal and round no pallor or injection. ENT, Mouth: Mucous membranes are moist. Respiratory: There are no retractions, lungs are clear to auscultation. Cardiovascular: Regular rate and rhythm. Gastrointestinal: Abdomen is soft and nontender, no masses, bowel sounds normal. Neurological: Awake and alert, sensory and motor exams grossly normal. Skin: Warm and dry, no rashes. Musculoskeletal: Neck is supple nontender. Extremities symmetrical, full range of motion. Psychiatric: Patient is oriented X 3, there is no agitation. Constitutional: Initial Vital Signs Temperature (C) 36.5 C 10/01/17 14:30 Heart Rate 104 H 10/01/17 14:30 Respiratory Rate 16 10/01/17 14:30 Blood Pressure 110/75 10/01/17 14:30 O2 Sat (%) 98 10/01/17 14:30 O2 Delivery Mode Room Air Allergies/Adverse Reactions: chlorhexidine Allergy (Verified 10/01/17 14:36) ct dye. Allergy (Uncoded 10/01/17 14:37) Home Medications: Medication Instructions Recorded ALPRAZolam [Xanax 0.5 MG (*)] 1 - 2 mg PO Q2H PRN 12/24/16 Diphenhydramine 25 mg/50 ml-Ns 0 mg IV PRN PRN 12/24/16 Levothyroxine [Synthroid 50 mcg 50 mcg PO MOTUWETHFR@12/24/16 (*)] Apixaban [Eliquis] 5 mg PO BID 09/26/17 Levothyroxine [Synthroid 100 mcg 100 mcg PO SUSA@09/26/17 (*)] Medical Decision Making Procedures: IV established. Patient would like to use her Benadryl as she has multiple while is a Benadryl. She you request 50 mg dose. We will send her bile to the pharmacy left them look at. She is then going to be given a g of Ancef after pretreatment. Patient tells me that her physician to not wish to have her have a PICC line because of previous blood clot concern for infection. We will leave this as a peripheral IV for now. ED Course/Re-evaluation: I consulted and discussed case with Dr. Mendoza, infectious Disease who tells me that since the patient had left AMA she was admitted at a [facility] and also signed out AMA there. Dr. Mendoza recommends case management trying to set up home antibiotics. He notes probably high failure rate. His recommendation would be Ancef 3 times daily for 2 weeks. I have asked our family preservation caseworker to be involved I have discussed again with Dr. Mendoza the outpatient antibiotic management. Differential Diagnosis: Patient with MS S a and positive staff blood cultures who had signed out AMA. She is receiving outpatient antibiotics in consultation with Infectious Disease who will see the patient tomorrow. Plan is to leave the IV in and have the patient return tonight at 11 for further IV antibiotics and then she will be seen on 3 infusion and by ID tomorrow morning. Her personal physician has recommended no further PICC line or central line so we will leave the peripheral IV in for the next 24 hr while she is receiving antibiotics and determining further her treatment course - Data Points Laboratory Results: Laboratory Results 10/01/17 16:19 18 16:19 10/01/1718 10/01/17 16:19 16:19 16:19 WBC 5.46 10^3/uL 10^3/uL (3.80-9.50) RBC 4.53 10^6/uL 10^6/uL (4.18-5.33) Hgb 10.4 g/dL L g/dL (12.6-16.3) Hct 33.1 % L % (38.0-47.0) MCV 73.1 fL L fL (81.5-99.8) MCH 23.0 pg L pg (27.9-34.1) MCHC 31.4 g/dL L g/dL (32.4-36.7) RDW 16.1 % H % (11.5-15.2) Plt Count 284 10^3/uL 10^3/uL (150-400) MPV 9.5 fL fL (8.7-11.7) Neut % (Auto) 58.7 % % (39.3-74.2) Lymph % (Auto) 30.8 % % (15.0-45.0) Bremer % (Auto) 5.9 % % (4.5-13.0) Eos % (Auto) 4.0 % % (0.6-7.6) Baso % (Auto) 0.2 % L % (0.3-1.7) Nucleat RBC Rel Count 0.0 % % (0.0-0.2) Absolute Neuts (auto) 3.21 10^3/uL 10^3/uL (1.70-6.50) Absolute Lymphs (auto) 1.68 10^3/uL 10^3/uL (1.00-3.00) Absolute Monos (auto) 0.32 10^3/uL 10^3/uL (0.30-0.80) Absolute Eos (auto) 0.22 10^3/uL 10^3/uL (0.03-0.40) Absolute Basos (auto) 0.01 10^3/uL L 10^3/uL (0.02-0.10) Absolute Nucleated RBC 0.00 10^3/uL 10^3/uL (0-0.01) Immature Gran % 0.4 % % (0.0-1.1) Immature Gran # 0.02 10^3/uL 10^3/uL (0.00-0.10) PT 16.3 SEC H SEC (12.0-15.0) INR 1.29 H (0.83-1.16) APTT 28.6 SEC SEC (23.0-38.0) VBG Lactic Acid Sodium 135 mEq/L mEq/L (135-145) Potassium 3.2 mEq/L L mEq/L (3.5-5.2) Chloride 95 mEq/L L mEq/L (97-110) Carbon Dioxide 29 mEq/l mEq/l (22-31) Anion Gap 11 mEq/L mEq/L (8-16) BUN 7 mg/dL mg/dL (7-23) Creatinine 0.5 mg/dL L mg/dL (0.6-1.0) Estimated GFR > 60 Glucose 72 mg/dL mg/dL (70-100) Calcium 8.5 mg/dL mg/dL (8.5-10.4) Total Bilirubin 0.6 mg/dL mg/dL (0.1-1.4) 10/01/17 16:19 WBC RBC Hgb Hct MCV MCH MCHC RDW Plt Count MPV Neut % (Auto) Lymph % (Auto) Bremer % (Auto) Eos % (Auto) Baso % (Auto) Nucleat RBC Rel Count Absolute Neuts (auto) Absolute Lymphs (auto) Absolute Monos (auto) Absolute Eos (auto) Absolute Basos (auto) Absolute Nucleated RBC Immature Gran % Immature Gran # PT INR APTT VBG Lactic Acid 0.7 mmol/L mmol/L (0.7-2.1) Sodium Potassium Chloride Carbon Dioxide Anion Gap BUN Creatinine Estimated GFR Glucose Calcium Total Bilirubin Medications Given: Discontinued Medications Diphenhydramine HCl (Benadryl Injection) 50 mg IVP EDNOW ONE Stop: 10/01/17 16:35 Last Admin: 10/01/17 16:51 Dose: 50 mg Cefazolin Sodium/Dextrose (Ancef 1 Gm (Premix)) 50 mls @ 200 mls/hr IV EDNOW ONE PRN Reason: Protocol Stop: 10/01/17 16:47 Last Admin: 10/01/17 16:52 Dose: 50 mls Departure - Departure Disposition: Home, Routine, Self-Care Clinical Impression: Staphylococcus aureus bacteremia Condition: Good Instructions: Bacteremia (ED) Additional Instructions: Return tonight for further IV antibiotics Tomorrow morning at 8:00 a.m. return to the hospital and go to the [address] [place] [address] for further IV antibiotics Referrals: Neida Leong MD [Primary Care Provider] - As per Instructions Bob Mendoza MD [Medical Doctor] - 1 day without fail
[2017-10-01 16:30] LABS: PLATELET COUNT 284 10^3/uL (150-400)
[2017-10-01 16:40] LABS: INR 1.29 (0.83-1.16); PROTIME(PATIENT) 16.3 SEC (12.0-15.0)
[2017-10-01 19:24] VITALS: BP 119/73
== END 2017-10-01 19:29 | disposition home or self-care (01) ==
DX: R78.81 Bacteremia (principal); Z79.01 Long term (current) use of anticoagulants
CPT/HCPCS: 96374; J0690; J1200

== ENCOUNTER 2017-10-01 23:57 | Emergency (ER) | payer MEDICAID ==
[2017-10-02 00:11] VITALS: BP 122/64
--- NOTE | 2017-10-02 21:01 | ASMTCMCOM ---
CM Note CM Note Notes: Late Entry from yesterday 10/01/17, continuing into today. Yesterday pt presented to the ED needing antibiotics for her recent diagnosis of staph aureus bacteremia. Pt was admitted to [facility] 09/26 but left AMA on 09/28/17; she then went to [facility] but apparently left AMA there as well. Pt and her , Fab, stated they were also seen at [facility] before returning to [facility] ED. During ED visit, pt was offered/recommended admission but declined, stating she wanted to try to coordinate outpatient IV antibiotic treatment. Pt had been receiving home infusion services (related to pt's Mast Cell Activation Syndrome, Postural tachycardia syndrome (PoTS) and other autoimmune diseases) from [facility] up until she was admitted to [facility] and left AMA and also because she recently switched Allergy & Immunology specialists (pt was being seen by Dr Vilma Cannon but she left the practice and so pt is now seen by Dr Elio Hernandez). This CM spoke with Stacia briones/Becky. Stacia spoke with her director Ty Godwin and confirmed that patient had been discharged from their services due to no longer having orders in place (due to pt leaving AMA) and because pt switching to a new specialist Dr Hernandez, with [facility] ([phone]); reportedly Dr Hernandez prefers his patients to receive infusion services through [facility]. This CM spoke with pt's , Fab ([phone]) over the phone and he stated that the patient was actually set up with [facility] prior to getting [facility] and states [facility] discharged the patient from their services due to cost of care. It has been confirmed that [facility] and [facility] will not re-enroll patient to their services. This CM spoke with Dr Hernandez's Infusion Jig Maker, Shante Brito ([phone], ext [phone]) and she said she will speak to Dr Hernandez and see if he would now be willing to write home infusion orders for fluids, IV Benadryl, etc (what Dr Cannon had been ordering) since pt has been seen by an ID MD and is being followed by [facility] for now. Shante to call back tomorrow. This CM spoke with Nona with [facility] ([phone]) and referral was sent; acceptance pending re: pt's Medicaid benefits. Fab said it would be great if [facility] reached out to him and the pt; Nona says she will contact them after receiving benefits info. Nona aware of pt need home infusion therapies ordered through Dr. Hernandez and is aware this CM to update her as soon as Shante gets back to . Pt still is enrolled with [facility]. This CM spoke with IRMA Parks/ Engine Setter at [facility] (personal cell:[phone]), and she says pt is still active with them but they would need new orders in order to resume assistance with home IV infusion care. Kasey said it would be possible to provide HC services once a day (if pt stays on Rocephin) and also could educate the to administer the antibiotics if needed. This CM to follow up with Kasey tomorrow. PLAN: Pt to arrive at Infusion center on Sunday10/03/17 morning at 8:30am for next Rocephin dose. Dr Buenrostro and/or Dr Bob Mendoza following patient. Nona with [facility] to contact [facility]. This CM to follow up with Shante at Dr Hernandez's office, Nona and also Kasey at [facility]. CM to follow Date Signed: 10/02/2017 09:00 PM Electronically Signed By:Fannie Parra RN
--- NOTE | 2017-10-02 21:03 | ASMTLACE ---
ISABELLA Acuity / Level of Answers: No Care: Did the patient have an inpatient admission? Comorbidities - select Answers: Connective tissue disease all that apply Other Notes: autoimmune disorders # of Emergency department Answers: 5-8 visits in the last 6 months Social determinants Answers: Mental health diagnosis (anxiety, depression, pers onality disorders, etc.) Score: 11 Date Signed: 10/02/2017 09:03 PM Electronically Signed By:Fannie Parra RN
== END 2017-10-02 01:05 | disposition home or self-care (01) ==
DX: Z76.0 Encounter for issue of repeat prescription (principal)
CPT/HCPCS: 96365; J0690; J1200

== ENCOUNTER 2017-10-04 17:58 | Emergency (ER) | payer MEDICAID ==
--- NOTE | 2017-10-04 18:16 | EDPHY ---
H & P Stated Complaint: ABX infusion Time Seen by Provider: 10/04/17 18:08 - Personal History LMP (Females 10-55): 1-7 Days Ago Current Tetanus/Diphtheria Vaccine: Unsure Current Tetanus Diphtheria and Acellular Pertussis (TDAP): Unsure - Medical/Surgical History Hx Asthma: No Hx Chronic Respiratory Disease: No Hx Diabetes: No Hx Cardiac Disease: No Hx Renal Disease: No Hx Cirrhosis: No Hx Alcoholism: No Hx HIV/AIDS: No Hx Splenectomy or Spleen Trauma: No Other PMH: Mast cell activation syndrome, Manav Danlos syndrome, DVT, POTS, autonomic neuropathy, sjogrens syndrome - Social History Smoking Status: Never smoked Constitutional: Initial Vital Signs Temperature (C) 37 C 10/04/17 18:08 Heart Rate 130 H 10/04/17 18:08 Respiratory Rate 18 10/04/17 18:08 Blood Pressure 104/85 H 10/04/17 18:08 O2 Sat (%) 95 10/04/17 18:08 O2 Delivery Mode Room Air Allergies/Adverse Reactions: acetaminophen [From Tylenol] Allergy (Verified 10/04/17 18:07) chlorhexidine Allergy (Verified 10/04/17 18:07) corn Allergy (Verified 10/04/17 18:07) hydrocodone Allergy (Verified 10/04/17 18:07) montelukast [From Singulair] Allergy (Verified 10/04/17 18:07) NSAIDS (Non-Steroidal Anti-Inflamma Allergy (Verified 10/04/17 18:07) ct dye. Allergy (Uncoded 10/04/17 18:07) meat Allergy (Uncoded 10/04/17 18:07) most abx Allergy (Uncoded 10/04/17 18:07) peanut butter Allergy (Uncoded 10/04/17 18:07) Home Medications: Medication Instructions Recorded ALPRAZolam [Xanax 0.5 MG (*)] 1 - 2 mg PO Q2H PRN 12/24/16 Diphenhydramine 25 mg/50 ml-Ns 0 mg IV PRN PRN 12/24/16 Levothyroxine [Synthroid 50 mcg 50 mcg PO MOTUWETHFR@06 12/24/16 (*)] Apixaban [Eliquis] 5 mg PO BID 09/26/17 Levothyroxine [Synthroid 100 mcg 100 mcg PO SUSA@06 09/26/17 (*)] Cefazolin 2gm Iv 10/04/17 Medical Decision Making ED Course/Re-evaluation: CHIEF COMPLAINT: Needs antibiotics HISTORY OF PRESENT ILLNESS: The patient is a 31 y/o female with a history of mast cell activation syndrome and bacteremia referred to the ED by Dr. Paco Buenrostro for antibiotics. She needs antibiotics 3 times a day to treat bacteremia. Today, she had a PICC line placed in anticipation of receiving antibiotics at home. The antibiotic delivery group then informed her they would not be delivering to her. She will need to receive antibiotics in the ED until an outpatient program can be established. She denies any symptoms not related to her infection. She has brought some PICC line flushes due to multiple allergies. REVIEW OF SYSTEMS: A 10 point review of systems was performed and is negative with the exception of the elements mentioned in the history of present illness. PHYSICAL EXAM: HR, BP, O2 Sat, RR. Temp noted General Appearance: Alert, well hydrated, appropriate, and non-toxic appearing. Head: Atraumatic without scalp tenderness or obvious injury Eyes: Pupils equal, round, reactive to light and accommodation, EOMI, no trauma , no injection. Ears: Clear bilaterally, no perforation, normal landmarks Nose: Atraumatic, no rhinorrhea, clear. Throat: There is no erythema or exudates, no lesions, normal tonsils, mucus membranes moist. Neck: Supple, nontender, no lymphadenopathy. Respiratory: No retractions, no distress, no wheezes, and no accessory muscle use. Lungs are clear to auscultation bilaterally. Cardiovascular: Regular rate and rhythm, no murmurs, rubs, or gallops. Good capillary refill all extremities. Gastrointestinal: Abdomen is soft, nontender, non-distended, no masses, no rebound, no guarding, no peritoneal signs. Musculoskeletal: Normal active ROM of all extremities, atraumatic. PICC line in left arm. Neurological: Alert, appropriate, and interactive. Skin: No rashes, good turgor, no nodules on palpation. Past medical history: Mast cell activation syndrome, bacteremia, Manav-Danlos, POTS Past surgical history: PICC line Family history: Non-contributory Social history: and children at bedside, nonsmoker, lives in [place] DIFFERENTIAL DIAGNOSIS: MEDICAL DECISION MAKING: The patient presents for IV antibiotics as the home medication service refused to serve her. I spoke to Dr. Blanco Buenrostro and she needs to receive 2 grams of Ancef with 50 mg Benadryl for her bacteremia. His group is working on establishing another home or outpatient medication service. Until outpatient care is established she will need to receive 2 grams Ancef every 8 hours. She brings her own medication to flush with as she has many allergies. She received her medication and has agreed to return in 8 hours. I will inform the night charge nurse of her needs. - Data Points Medications Given: Discontinued Medications Diphenhydramine HCl (Benadryl Injection) 50 mg IVP EDNOW ONE Stop: 10/04/17 18:30 Last Admin: 10/04/17 18:41 Dose: 50 mg Cefazolin Sodium (Cefazolin Syringe) 2 gm in 20 mls @ 200 mls/hr IVP EDNOW ONE Stop: 10/04/17 19:05 Last Admin: 10/04/17 18:57 Dose: 20 mls Departure - Departure Disposition: Home, Routine, Self-Care Clinical Impression: Bacteremia Condition: Good Instructions: Bacteremia (ED) Additional Instructions: 1. Please return to the emergency department in 8 hours (at 3:00AM) for your next dose of antibiotics. 2. Return immediately if you experience worsening of condition. Referrals: Neida Leong MD [Primary Care Provider] - As per Instructions Report Scribed for: Bob Howell Report Scribed by: Diann Alvarado Date of Report: 10/04/17 Time of Report: 19:08
[2017-10-04] MEDS ORDERED: ceFAZolin 2 GM in NS 100 ML IV ONE (18:29)
[2017-10-04] MEDS ORDERED: ceFAZolin 2 GM/SWFI 2 GM/20 ML SYR IVP ONE (19:00)
[2017-10-04 19:18] VITALS: BP 93/71
== END 2017-10-04 19:21 | disposition home or self-care (01) ==
DX: R78.81 Bacteremia (principal); Z79.01 Long term (current) use of anticoagulants; Z91.010 Allergy to peanuts
CPT/HCPCS: 96374; J0690; J1200

== ENCOUNTER 2017-10-05 03:03 | Emergency (ER) | payer MEDICAID ==
[2017-10-05] MEDS ORDERED: ceFAZolin 2 GM/SWFI 2 GM/20 ML SYR IVP ONE (03:09)
--- NOTE | 2017-10-05 03:13 | EDPHY ---
H & P Time Seen by Provider: 10/05/17 03:08 HPI/ROS: Chief Complaint: Medication infusion, bacteremia HPI: 31-year-old woman with a history of mast cell disorder who is currently being treated for bacteremia by her infectious disease doctor. She has a PICC line in place. She is returning this morning for a scheduled dose of Ancef with Benadryl. She is presenting with her on flushes due to her multiple allergies. She is currently with out complaint. She is to receive IV antibiotics here and then will follow up with her infectious disease doctors later today. ROS: 10 point Review of Systems is negative except as noted in the HPI. Social History: No smoking Family History: non-contributory Physical Exam: Gen: Awake, Alert, No Distress HEENT: Nose: no rhinorrhea Eyes: PERRLA, EOMI Mouth: Moist mucosa Neck: Supple, no JVD Chest: nontender, lungs clear to auscultation Heart: S1, S2 normal, no murmur Abd: Soft, non-tender, no guarding Back: no CVA tenderness, no midline tenderness Ext: no edema, PICC line in place in her left AC. No erythema or discharge Skin: no rash Neuro: CN II-XII intact, Sensation grossly intact, Strength 5/5 in bilateral upper and lower extremities - Medical/Surgical History Hx Asthma: No Hx Chronic Respiratory Disease: No Hx Diabetes: No Hx Cardiac Disease: No Hx Renal Disease: No Hx Cirrhosis: No Hx Alcoholism: No Hx HIV/AIDS: No Hx Splenectomy or Spleen Trauma: No Other PMH: Mast cell activation syndrome, Manav Danlos syndrome, DVT, POTS, autonomic neuropathy, sjogrens syndrome - Social History Smoking Status: Never smoked Constitutional: Initial Vital Signs Temperature (C) 36.4 C 10/05/17 03:10 Heart Rate 122 H 10/05/17 03:10 Respiratory Rate 17 10/05/17 03:10 Blood Pressure 93/64 L 10/05/17 03:10 O2 Sat (%) 96 10/05/17 03:10 O2 Delivery Mode Room Air Allergies/Adverse Reactions: acetaminophen [From Tylenol] Allergy (Verified 10/04/17 18:07) chlorhexidine Allergy (Verified 10/04/17 18:07) corn Allergy (Verified 10/04/17 18:07) hydrocodone Allergy (Verified 10/04/17 18:07) montelukast [From Singulair] Allergy (Verified 10/04/17 18:07) NSAIDS (Non-Steroidal Anti-Inflamma Allergy (Verified 10/04/17 18:07) ct dye. Allergy (Uncoded 10/04/17 18:07) meat Allergy (Uncoded 10/04/17 18:07) most abx Allergy (Uncoded 10/04/17 18:07) peanut butter Allergy (Uncoded 10/04/17 18:07) Home Medications: Medication Instructions Recorded ALPRAZolam [Xanax 0.5 MG (*)] 1 - 2 mg PO Q2H PRN 12/24/16 Diphenhydramine 25 mg/50 ml-Ns 0 mg IV PRN PRN 12/24/16 Levothyroxine [Synthroid 50 mcg 50 mcg PO MOTUWETHFR@12/24/16 (*)] Apixaban [Eliquis] 5 mg PO BID 09/26/17 Levothyroxine [Synthroid 100 mcg 100 mcg PO SUSA@09/26/17 (*)] Cefazolin 2gm Iv 10/04/17 Medical Decision Making ED Course/Re-evaluation: 31-year-old with multiple immune problems presenting with bacteremia for antibiotics. This has been prearranged by Infectious Disease. She has been given Ancef and Benadryl here. She has run flexors to flush her PICC. She will be discharged with follow up with her infectious disease doctor later this morning. Departure - Departure Disposition: Home, Routine, Self-Care Clinical Impression: Bacteremia Condition: Good Instructions: Bacteremia (ED) Additional Instructions: Follow up with her infectious disease doctor later today as scheduled. Return to the emergency department for lightheadedness, fainting, chest pain, shortness of breath, uncontrolled fevers or chills, or any other concerns. Referrals: Neida Leong MD [Primary Care Provider] - As per Instructions
[2017-10-05 04:06] VITALS: BP 95/68
== END 2017-10-05 04:06 | disposition home or self-care (01) ==
DX: R78.81 Bacteremia (principal); Z91.010 Allergy to peanuts
CPT/HCPCS: 96374; J0690; J1200

== ENCOUNTER 2018-12-06 23:06 | Emergency (ER) | payer MEDICAID | END 2018-12-07 02:39 | disposition home or self-care (01) ==

== ENCOUNTER 2018-12-08 10:59 | Emergency (ER) | payer MEDICAID | END 2018-12-08 13:40 | disposition home or self-care (01) ==